=== PATIENT | female | born 1995 | race Caucasian/White ===

== ENCOUNTER 2020-03-04 04:32 | Emergency (ER) | payer OTHER, MEDICAID ==
[~2020-03-04] VITALS: Ht 162.6 cm; Wt 63.5 kg
[2020-03-04 07:18] VITALS: BP 104/63
== END 2020-03-04 07:26 | disposition home or self-care (01) ==
LOC: ER 04:32
DX: S61.302A Unspecified open wound of right middle finger with damage to nail, initial encounter (principal); S61.306A Unspecified open wound of right little finger with damage to nail, initial encounter; S60.041A Contusion of right ring finger without damage to nail, initial encounter; Z32.02 Encounter for pregnancy test, result negative; V43.52XA Car driver injured in collision with other type car in traffic accident, initial encounter; Y93.89 Activity, other specified; Y92.89 Other specified places as the place of occurrence of the external cause; Y99.8 Other external cause status
CPT/HCPCS: 73130; 81025